=== PATIENT | male | born 2000 | race Two or more races ===

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

== ENCOUNTER 2019-03-09 09:28 | Day surgery (SDC) | payer OTHER ==
[~2019-03-09 09:28] MED LIST: HUMALOG100 UNIT/1
== END 2019-03-09 18:10 | disposition home or self-care (01) ==
LOC: CIR.AMB 09:28
DX: K64.8 Other hemorrhoids (principal)